=== PATIENT | female | born 1940 | race Caucasian/White ===

== ENCOUNTER 2022-03-21 15:00 | Observation (INO) ==
--- NOTE | 2022-03-21 15:53 | XRay Report ---
INDICATION: fall weakness TECHNIQUE: AP portable semiupright chest x-ray COMPARISON: Previous chest x-ray dated 06/15/2020 FINDINGS: Lungs:Lungs are negative. No focal pulmonary parenchymal infiltrate or mass Heart, vascular: Heart size is within normal limits considering AP positioning. Pulmonary vascularity is normal. No pulmonary edema or pulmonary congestion Mediastinum, jackie:No mediastinal widening. No hilar mass Pleura:No pleural fluid. No pleural-based mass or calcification. No pneumothorax Skeletal:Negative. Previous left reverse shoulder arthroplasty. No acute rib fractures. IMPRESSION: 1. No acute abnormality 2. No significant interval change Interpreted and Authenticated by: Gurdeep Rodriguez 03/21/22
--- NOTE | 2022-03-21 15:56 | Cat Scan Report ---
INDICATION: ams COMPARISON: Previous examination dated 06/15/2020 TECHNIQUE: Axial noncontrast-enhanced images through the brain. Sagittally and coronally reformatted images. FINDINGS: Cerebral hemispheres:There is cerebral atrophy. There is prominent white matter abnormality consistent with small vessel ischemic change in this 82-year-old patient. No intra-axial hemorrhage. No focal intra-axial attenuation of the nodule localized mass effect. No acute abnormality. Brainstem and cerebellum:Focal substance loss in the superior left cerebellar hemisphere consistent with old infarction. This is unchanged. No acute abnormality. No intra-axial hemorrhage Extra-axial:No acute hemorrhage. No subdural or epidural hematoma. No subarachnoid hemorrhage. Basilar cisterns are normal Calvarial:No calvarial fracture. No lytic lesion Temporal bones are negative. No destructive lesions Soft tissue, orbits, sinuses:Orbits and visualized facial soft tissues and paranasal sinuses are negative IMPRESSION: 1. Cerebral atrophy and white matter abnormality consistent with small vessel ischemic change 2. Chronic left cerebellar infarction, unchanged 3. No acute abnormality. No intracranial hemorrhage The exam was performed using radiation dose optimization techniques including, but not limited to, automated exposure control, adjustment of the mA and/or kV according to patient size and use of iterative reconstruction technique. Interpreted and Authenticated by: Gurdeep Rodriguez 03/21/22
[2022-03-21 16:10] LABS: POC Calcium, Ionized 1.13 (1.16-1.32); POC Creatinine 0.8 (0.6-1.2); POC Potassium 3.5 (3.3-5.1)
--- NOTE | 2022-03-21 16:38 | Emergency Department Note ---
HPI General Chief complaint: Weakness Stated complaint: weakness Time Seen by Provider: 03/21/22 15:06 Source: patient and EMS Mode of arrival: EMS History of Present Illness HPI Narrative: Narrative: Patient presents to the emergency department with diffuse weakness, inability to care for self. Patient had a fall a few days ago she had a nondisplaced T8 vertebral body fracture. Orthopedics was consulted the patient was offered admission and she declined at that time. The patient went home and has failed to get up for around. She tried going to the commode and was unable to get off today. She tried to have her son help her off and he was unable. She lives with her son who does work during the day. The patient denies any fev ers or chills she does have some back pain. She reports that she has had poor oral intake for the last several days. No cough or congestion, no chest pain. Related Data Home Medications Medication Instructions Recorded Confirmed lisinopril 10 mg tablet 10 mg PO BID 03/21/22 03/22/22 simvastatin 40 mg tablet 40 mg PO QHS 03/22/22 03/22/22 Previous Rx's Medication Instructions Recorded methocarbamol 750 mg tablet 750 mg PO Q8H PRN spasms #60 tabs 11/09/21 polyethylene glycol 3350 17 17 g PO QDAY #510 grams 12/04/21 gram/dose oral powder (Miralax) zolpidem 6.25 mg tablet,extended 6.25 mg PO QHS PRN insomnia #30 03/02/22 release,multiphase tabs alprazolam 1 mg tablet 1 mg PO QID PRN anxiety #60 tabs 03/17/22 hydrocodone 10 mg-acetaminophen 0.5 tab PO BID PRN pain #1 tab 03/22/22 325 mg tablet nitrofurantoin 100 mg PO BID #9 caps 03/22/22 monohydrate/macrocrystals 100 mg capsule (Macrobid) Allergies Allergy/AdvReac Type Severity Reaction Status Date / Time ciprofloxacin AdvReac Severe spasms, Verified 03/19/22 19:42 pain dipyridamole [From Aggrenox] AdvReac Mild Other Verified 03/19/22 19:42 Sulfa (Sulfonamide AdvReac Mild Rash Verified 03/19/22 19:42 Antibiotics) Review of Systems ROS ROS Narrative: Narrative: All systems ED: reviewed and negative except as stated. 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) Diabetes (Chronic) Hypertension (Chronic) Breast cancer (Chronic) DCIS (ductal carcinoma in situ) (Chronic) Hyperlipidemia (Chronic) Chronic pain (Chronic) Frequent UTI (Chronic) Osteoporosis (Chronic) Paresthesia (Chronic) 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) Constipation (Chronic) Long-term use of high-risk medication (Chronic) Loss of appetite (Chronic) Frequent falls (Chronic) Grief reaction (Chronic) Diabetic autonomic neuropathy (Chronic) Proteinuria (Chronic) 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) Degenerative disc disease, lumbar (Chronic) Depression (Chronic) Joint pain (Chronic) Gout (Chronic) Arthritis (Chronic) Fatigue (Chronic) Poor sleep (Chronic) Anxiety (Chronic) Headache (Chronic) Urinary incontinence (Chronic) Spinal stenosis (Chronic) Degenerative joint disease of ankle (Chronic) Medical History Adjustment disorder with mixed anxiety and depressed mood Anxiety Arthritis Breast cancer S/P left breast Mastectomy Candidal vaginitis Cerebral vascular accident Chronic pain Constipation DCIS (ductal carcinoma in situ) Degenerative disc disease, lumbar Degenerative joint disease of ankle Depression Diabetes Diabetic autonomic neuropathy Dysuria Fatigue Foot callus Frequent falls Frequent UTI Gout Grief reaction Headache Hyperlipidemia Hypertension Joint pain extermination supervisor (current) use of opiate analgesic fentanyl patch; for back and neck pain, etc. Long-term use of high-risk medication Loss of appetite Lumbosacral disc herniation Neck pain Non-pressure chronic ulcer of other part of left foot limited to breakdown of skin Osteoporosis Poor sleep Proteinuria Shoulder impingement syndrome Spinal stenosis Stress Urinary frequency Urinary incontinence Urinary tract infection Weakness Surgical History History of appendectomy (~1965) History of back surgery (~2004) Decompression/Fusion History of cervical discectomy (~2010) History of cholecystectomy History of colonoscopy (~04/25/12) History of dental surgery (~2016) History of eye surgery Left cataract repair-2006, Right cataract repair-2011 History of foot surgery (~2001) Heel surgery History of hemorrhoidectomy History of hysterectomy (~1970) History of left hip replacement (~2007) History of mastectomy Triple negative Grade III History of right hip replacement (~2008) History of tonsillectomy S/P left mastectomy S/P lumpectomy, left breast (~2002) Family History Father Hypertension Prostate cancer Social History Smoking Status: Former smoker Alcohol Intake Frequency: does not drink Substance Use: does not use Exam Narrative Narrative: Narrative: Vital signs noted General: Awake. Alert. No distress. HEENT: NCAT PERRL EOMI. No conjunctivitis. Membranes moist. Neck: Supple, trachea midline Cardiovascular: RRR. No murmur. No rubs. No gallops. Respiratory: No respiratory distress. Breath sounds equal. Lungs clear. Gastrointestinal: Soft. No tenderness Musculoskeletal: No pain. No soft tissue swelling. Patient's upper extremity and lower extremity strength are diffusely weak without asymmetry she has good passive range of motion around the hips shoulders knees elbows, ankles wrists Back: Patient does have tenderness in the mid thoracic spine to palpation she has no cervical spinal tenderness to palpation in the midline Skin: Warm. Dry. No rash Neurologic: Alert and oriented x3 moves all extremities equally and fully, speech is fluent face is symmetric Course Vital Signs Vital signs: Vital Signs Temperature 98.3 F 03/21/22 15:02 Pulse Rate 83 03/21/22 15:02 Respiratory Rate 18 03/21/22 15:02 Blood Pressure 143/84 03/21/22 15:02 Pulse Oximetry (%) 96 03/21/22 15:02 Oxygen Delivery Method 03/21/22 15:02 Temperature 97.3 F 03/22/22 16:00 Pulse Rate 66 03/22/22 16:00 Respiratory Rate 20 03/22/22 16:00 Blood Pressure 139/87 03/22/22 16:00 Pulse Oximetry (%) 96 03/22/22 16:00 Oxygen Delivery Method 03/22/22 16:00 [facility] MDM Narrative Medical decision making narrative: Narrative: Patient presents to the emergency department with weakness, back pain. She lives with her son and he is having a difficult time taking care of her. Patient was recently seen in the emergency department and had a T8 vertebral body dissolution which appeared to be acute compared to prior this is clinically where the patient's pain is at. Patient's urine analysis does have trace leukocyte esterase, 98 white blood cells and a few bacteria. Given the patient's overall weakness and mild leukocytosis I will give her ceftriaxone. I also give the patient IV fluids her CK has climbed to 600 likely from dehydration patient's EKG shows a normal sinus rhythm of 76, normal axis, normal R wave progression without evidence of acute ischemia. I have spoke with the hospitalist who is agreeable to admit the patient. Lab Data Result diagrams: 03/22/22 05:37 03/22/22 05:37 Labs: Lab Results 03/21/22 03/21/22 03/21/22 Range/Units 16:02 16:03 16:03 WBC (4.5-11.0) K/mcL RBC (3.59-5.38) M/mcL Hgb (11.2-15.7) g/dL Hct (34.1-44.9) % POC Hct 44.0 (36-48) MCV (80.0-100.0) fL MCH (26.0-34.0) pg MCHC (31.0-36.0) g/dL RDW (11.5-14.5) % Plt Count (140-440) K/mcL MPV (7.4-10.4) fL Immature Gran % (Auto) (0.0-0.5) % Neut % (Auto) (38.0-78.0) % Lymph % (Auto) (15.5-49.0) % [place] % (Auto) (1.0-12.0) % Eos % (Auto) (0.0-7.0) % Baso % (Auto) (0.0-2.0) % Lymph # (Auto) (1.50-4.80) K/mcL [place] # (Auto) (0.10-0.90) K/mcL Eos # (Auto) (0.00-0.70) K/mcL Baso # (Auto) (0.00-0.30) K/mcL Immature Gran # (0.00-0.05) K/mcl Absolute Neutrophils (1.80-8.00) K/mcL POC Sodium 141 (133-145) POC Potassium 3.5 (3.3-5.1) POC Chloride 102 (96-108) POC Total CO2 29.0 (22-30) POC BUN 13 (6-20) POC Creatinine 0.8 (0.6-1.2) POC Glucose 130 H (70-105) POC WB Ioniz Calcium 1.13 L (1.16-1.32) Magnesium (1.6-2.5) mg/dL Total Bilirubin (0.1-1.0) mg/dL Direct Bilirubin (0-0.3) mg/dL AST (<32) U/L ALT (<40) U/L Alkaline Phosphatase (39-117) U/L Total Creatine Kinase (24-170) U/L Total Protein (5.9-8.4) gm/dL Albumin (3.2-5.2) gm/dL Globulin (2.2-3.7) gm/dL Procalcitonin 0.07 (<0.10) ng/mL TSH (0.27-5.01) uIU/mL Urine Color Urine Appearance (Clear) Urine pH (5.0-9.0) Ur Specific [place] (1.000-1.035) Urine Protein (Negative) mg/dL Urine Glucose (UA) (Negative) mg/dL Urine Ketones (Negative) mg/dL Urine Occult Blood (Negative) ange/mcL Urine Nitrate (Negative) Urine Bilirubin (Negative) mg/dL Urine Urobilinogen mg/dL Ur Leukocyte Esterase (Negative) /uL Urine RBC (0-3) /hpf Urine WBC (0-4) /hpf Ur Squamous Epith Cells (0-4) /hpf Urine Bacteria (0) /hpf Urine Mucus (None) /hpf Ur Culture Indicated? POC Troponin I 0 L (0.02-0.08) 03/21/22 03/21/22 03/21/22 Range/Units 16:05 16:06 16:38 WBC 11.1 H (4.5-11.0) K/mcL RBC 4.82 (3.59-5.38) M/mcL Hgb 14.7 (11.2-15.7) g/dL Hct 44.2 (34.1-44.9) % POC Hct (36-48) MCV 91.7 (80.0-100.0) fL MCH 30.5 (26.0-34.0) pg MCHC 33.3 (31.0-36.0) g/dL RDW 12.7 (11.5-14.5) % Plt Count 211 (140-440) K/mcL MPV 9.2 (7.4-10.4) fL Immature Gran % (Auto) 0.5 (0.0-0.5) % Neut % (Auto) 83.4 H (38.0-78.0) % Lymph % (Auto) 9.0 L (15.5-49.0) % [place] % (Auto) 5.2 (1.0-12.0) % Eos % (Auto) 1.6 (0.0-7.0) % Baso % (Auto) 0.3 (0.0-2.0) % Lymph # (Auto) 1.00 L (1.50-4.80) K/mcL [place] # (Auto) 0.58 (0.10-0.90) K/mcL Eos # (Auto) 0.18 (0.00-0.70) K/mcL Baso # (Auto) 0.03 (0.00-0.30) K/mcL Immature Gran # 0.06 H (0.00-0.05) K/mcl Absolute Neutrophils 9.22 H (1.80-8.00) K/mcL POC Sodium (133-145) POC Potassium (3.3-5.1) POC Chloride (96-108) POC Total CO2 (22-30) POC BUN (6-20) POC Creatinine (0.6-1.2) POC Glucose (70-105) POC WB Ioniz Calcium (1.16-1.32) Magnesium 1.8 (1.6-2.5) mg/dL Total Bilirubin 0.7 (0.1-1.0) mg/dL Direct Bilirubin < 0.2 (0-0.3) mg/dL AST 30 (<32) U/L ALT 11 (<40) U/L Alkaline Phosphatase 81 (39-117) U/L Total Creatine Kinase 600 H (24-170) U/L Total Protein 7.0 (5.9-8.4) gm/dL Albumin 3.7 (3.2-5.2) gm/dL Globulin 3.3 (2.2-3.7) gm/dL Procalcitonin (<0.10) ng/mL TSH 1.64 (0.27-5.01) uIU/mL Urine Color Dark yellow Urine Appearance Clear (Clear) Urine pH 5.5 (5.0-9.0) Ur Specific [place] >= 1.030 (1.000-1.035) Urine Protein >=300 mg/dl A (Negative) mg/dL Urine Glucose (UA) Negative (Negative) mg/dL Urine Ketones 40 mg/dl A (Negative) mg/dL Urine Occult Blood Small A (Negative) ange/mcL Urine Nitrate Negative (Negative) Urine Bilirubin Negative (Negative) mg/dL Urine Urobilinogen Normal mg/dL Ur Leukocyte Esterase Trace A (Negative) /uL Urine RBC 61 H (0-3) /hpf Urine WBC 98 H (0-4) /hpf Ur Squamous Epith Cells 3 (0-4) /hpf Urine Bacteria Few A (0) /hpf Urine Mucus Mod A (None) /hpf Ur Culture Indicated? yes POC Troponin I (0.02-0.08) Discharge Plan Patient/Caregiver Discharge Instructions Pt seen by [facility]/PA only: No Clinical Impression: Closed fracture of T8 vertebra, Acute dehydration Activity: ambulate only with your walker Patient Disposition: Xfer As Inpt ([facility]) Condition: Fair Discharge Date/Time: 03/21/22 20:14
[2022-03-21 16:48] LABS: Basophils # (Auto) 0.03 K/mcL (0.00-0.30); Basophils % (Auto) 0.3 % (0.0-2.0); Eosinophils # (Auto) 0.18 K/mcL (0.00-0.70); Eosinophils % (Auto) 1.6 % (0.0-7.0); Hematocrit 44.2 % (34.1-44.9); Hemoglobin 14.7 g/dL (11.2-15.7); Mean Cell Volume 91.7 fL (80.0-100.0); Mean Corpuscular HGB Conc 33.3 g/dL (31.0-36.0); Mean Platelet Volume 9.2 fL (7.4-10.4); Monocytes # (Auto) 0.58 K/mcL (0.10-0.90); Monocytes % (Auto) 5.2 % (1.0-12.0); Neutrophils % (Auto) 83.4 % (38.0-78.0); Platelet Count 211 K/mcL (140-440); RBC 4.82 M/mcL (3.59-5.38); Red Cell Distribution Width 12.7 % (11.5-14.5); WBC 11.1 K/mcL (4.5-11.0)
[2022-03-21 17:17] LABS: Creatine Kinase 600 U/L (24-170)
[2022-03-21 17:18] LABS: ALT/SGPT 11 U/L (<40); AST/SGOT 30 U/L (<32); Albumin 3.7 gm/dL (3.2-5.2); Alkaline Phosphatase 81 U/L (39-117); Bilirubin,Direct < 0.2 mg/dL (0-0.3); Bilirubin,Total 0.7 mg/dL (0.1-1.0); Globulin 3.3 gm/dL (2.2-3.7); Thyroid Stimulating Hormone 1.64 uIU/mL (0.27-5.01)
[2022-03-21] MEDS ORDERED: LACTATED RINGERS 1,000 ML IV ONE (17:19)
[2022-03-21 17:22] LABS: Appearance,Urine Clear (Clear); Bacteria,Urine FEW /hpf (0); Bilirubin,Urine Negative (Negative); Color,Urine Dark yellow; Culture Indicated,Urine yes; Glucose,Urine (UA) Negative (Negative); Ketones,Urine 40 mg/dL mg/dL (Negative); Leukocyte Esterase,Urine Trace /uL (Negative); Mucus,Urine MOD /hpf; Nitrate,Urine Negative (Negative); PH,Urine 5.5 (5.0-9.0); Protein,Urine >=300 mg/dL mg/dL (Negative); Specific Gravity,Urine >= 1.030 (1.000-1.035); Urine Blood Small ery/mcL (Negative); Urine RBC 61 /hpf (0-3); Urine Squamous Epithelial Cell 3 /hpf (0-4); Urine WBC 98 /hpf (0-4); Urobilinogen,Urine Normal
[2022-03-21] MEDS ORDERED: cefTRIAXone 1 GM VIAL IV ONE (17:25)
--- NOTE | 2022-03-21 17:59 | Internal Med History&Physical ---
HPI History of Present Illness Patient information: Note initiated : 03/21/22 at 5:52 pm Service Date, if different from initiated Date: [] Patient: Laura Noriega a 82 y/o F admitted on for weakness. Chief Complaint: [] History of present illness: Ms. Noriega is a 82 year old F Patient brought into the ED today for increased weakness and falling. Patient fell several days ago and sustained a T8 vertebral fracture. Patient has been unable to care for herself at home. She does live with her son. Given the increased weakness of falling her son total unable to care for her as well. She does complain a little bit of dysuria when asked specifically. UA with ketones and trace leukocyte esterase with increased WBCs. Head CT no acute but does show cerebral atrophy and chronic ischemic changes. Chronic cerebellar infarction noted unchanged. Chest x-ray unremarkable. Patient denies fever chills. Does admit to mid back pain. CPK mildly elevated 600. Renal function within normal limits. Review of Systems: Pertinent positives as above. Denies headache/fever/chills/nausea/vomiting/chest or abdominal pain/cough/dyspnea/diarrhea. 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) Diabetes (Chronic) Hypertension (Chronic) Breast cancer (Chronic) DCIS (ductal carcinoma in situ) (Chronic) Hyperlipidemia (Chronic) Chronic pain (Chronic) Frequent UTI (Chronic) Osteoporosis (Chronic) Paresthesia (Chronic) 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) Constipation (Chronic) Long-term use of high-risk medication (Chronic) Loss of appetite (Chronic) Frequent falls (Chronic) Grief reaction (Chronic) Diabetic autonomic neuropathy (Chronic) Proteinuria (Chronic) 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) Degenerative disc disease, lumbar (Chronic) Depression (Chronic) Joint pain (Chronic) Gout (Chronic) Arthritis (Chronic) Fatigue (Chronic) Poor sleep (Chronic) Anxiety (Chronic) Headache (Chronic) Urinary incontinence (Chronic) Spinal stenosis (Chronic) Degenerative joint disease of ankle (Chronic) Medical History Adjustment disorder with mixed anxiety and depressed mood Anxiety Arthritis Breast cancer S/P left breast Mastectomy Candidal vaginitis Cerebral vascular accident Chronic pain Constipation DCIS (ductal carcinoma in situ) Degenerative disc disease, lumbar Degenerative joint disease of ankle Depression Diabetes Diabetic autonomic neuropathy Dysuria Fatigue Foot callus Frequent falls Frequent UTI Gout Grief reaction Headache Hyperlipidemia Hypertension 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 Long-term use of high-risk medication Loss of appetite Lumbosacral disc herniation Neck pain Non-pressure chronic ulcer of other part of left foot limited to breakdown of skin Osteoporosis Poor sleep Proteinuria Shoulder impingement syndrome Spinal stenosis Stress Urinary frequency Urinary incontinence Urinary tract infection Weakness Surgical History History of appendectomy (~1965) History of back surgery (~2004) Decompression/Fusion History of cervical discectomy (~2010) History of cholecystectomy History of colonoscopy (~04/25/12) History of dental surgery (~2016) History of eye surgery Left cataract repair-2006, Right cataract repair-2011 History of foot surgery (~2001) Heel surgery History of hemorrhoidectomy History of hysterectomy (~1970) History of left hip replacement (~2007) History of mastectomy Triple negative Grade III History of right hip replacement (~2008) History of tonsillectomy S/P left mastectomy S/P lumpectomy, left breast (~2002) Family History Father Hypertension Prostate cancer Social History marital status: occupational status: 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 leisure activities: sports, fishing and other other: Children-3, Grandchildren-2, Great Grandchildren-2 physical activity: other frequency: 3-4 times per week smoking status: Former smoker alcohol intake frequency: does not drink substance use type: does not use MEDS/ALLERGIES Home Medications and Allergies Home Medications Medication Instructions Recorded Confirmed Type cholecalciferol (vitamin D3) 1,250 1,250 mcg PO QWEEK #12 caps 05/24/21 02/08/22 Rx mcg (50,000 unit) capsule lisinopril 10 mg tablet See Rx Instructions .Route 11/09/21 02/08/22 Rx .COMPLEX #180 tabs methocarbamol 750 mg tablet 750 mg PO Q8H PRN spasms #60 tabs 11/09/21 02/08/22 Rx simvastatin 40 mg tablet See Rx Instructions .Route 11/09/21 02/08/22 Rx .COMPLEX #90 tabs polyethylene glycol 3350 17 17 g PO QDAY #510 grams 12/04/21 02/08/22 Rx gram/dose oral powder (Miralax) hydrocodone 10 mg-acetaminophen 1 tab PO BID PRN pain #60 tabs 03/02/22 Rx 325 mg tablet zolpidem 6.25 mg tablet,extended 6.25 mg PO QHS PRN insomnia #30 03/02/22 Rx release,multiphase tabs alprazolam 1 mg tablet 1 mg PO QID PRN anxiety #60 tabs 03/17/22 Rx Allergies Allergy/AdvReac Type Severity Reaction Status Date / Time doxycycline Allergy Intermediate Unknown Verified 03/19/22 19:42 meloxicam Allergy Unknown Unknown Verified 03/19/22 19:42 naproxen [From Naprosyn] Allergy Unknown Unknown Verified 03/19/22 19:42 oxycodone Allergy Unknown Unknown Verified 03/19/22 19:42 Tamoxifen Allergy Unknown Unknown Verified 03/19/22 19:42 Tizanidine Allergy Unknown Unknown Verified 03/19/22 19:42 ciprofloxacin AdvReac Severe spasms, Verified 03/19/22 19:42 pain aspirin AdvReac Mild Numbness Verified 03/19/22 19:42 Corticosteroids AdvReac Mild sleeplessne Verified 03/19/22 19:42 (Glucocorticoids) ss Cortisone AdvReac Mild sleeplessne Verified 03/19/22 19:42 ss dexamethasone AdvReac Mild sleeplessne Verified 03/19/22 19:42 ss dipyridamole [From Aggrenox] AdvReac Mild Other Verified 03/19/22 19:42 ibuprofen AdvReac Mild Other Verified 03/19/22 19:42 morphine AdvReac Mild Headache Verified 03/19/22 19:42 pseudoephedrine AdvReac Mild sleeplessne Verified 03/19/22 19:42 [From [facility]] ss Sulfa (Sulfonamide AdvReac Mild Rash Verified 03/19/22 19:42 Antibiotics) EXAM Constitutional Vitals: Temp Pulse Resp BP Pulse Ox O2 Del Method 98.3 F 81 18 174/77 97 03/21/22 15:02 03/21/22 16:42 03/21/22 15:02 03/21/22 16:45 03/21/22 16:42 03/21/22 15:02 Exam: General: Alert, Awake, No acute Distress, obese Eyes/N/T: EOMI, PERRL, dry MM Head/Neck: neck supple, normocephalic atraumatic CV: RRR, No murmurs, normal s1/s2 Pulm: Clear b/l, no wheezing/rhonchi/rales Abd: soft, nontender, +BS x4 Ext: no clubbing/cyanosis/edema Neuro: Alert, no focal deficits, moves all extremities, CN 2-12 grossly intact, symmetrical strength b/l upper/lower, sensations intact b/l upper/lower Skin: warm/dry DATA Data Completed and Pending Labs: Labs from last 24 hours 03/21/22 03/21/22 03/21/22 16:38 16:06 16:05 WBC 11.1 H RBC 4.82 Hgb 14.7 Hct 44.2 POC Hct MCV 91.7 MCH 30.5 MCHC 33.3 RDW 12.7 Plt Count 211 MPV 9.2 Immature Gran % (Auto) 0.5 Neut % (Auto) 83.4 H Lymph % (Auto) 9.0 L [place] % (Auto) 5.2 Eos % (Auto) 1.6 Baso % (Auto) 0.3 Lymph # (Auto) 1.00 L [place] # (Auto) 0.58 Eos # (Auto) 0.18 Baso # (Auto) 0.03 Immature Gran # 0.06 H Absolute Neutrophils 9.22 H POC Sodium POC Potassium POC Chloride POC Total CO2 POC BUN POC Creatinine POC Glucose POC WB Ioniz Calcium Magnesium 1.8 Total Bilirubin 0.7 Direct Bilirubin < 0.2 AST 30 ALT 11 Alkaline Phosphatase 81 Total Creatine Kinase 600 H Total Protein 7.0 Albumin 3.7 Globulin 3.3 Procalcitonin TSH 1.64 Urine Color Dark yellow Urine Appearance Clear Urine pH 5.5 Ur Specific [place] >= 1.030 Urine Protein >=300 mg/dl A Urine Glucose (UA) Negative Urine Ketones 40 mg/dl A Urine Occult Blood Small A Urine Nitrate Negative Urine Bilirubin Negative Urine Urobilinogen Normal Ur Leukocyte Esterase Trace A Urine RBC 61 H Urine WBC 98 H Ur Squamous Epith Cells 3 Urine Bacteria Few A Urine Mucus Mod A Ur Culture Indicated? yes POC Troponin I Pending 03/21/22 03/21/22 03/21/22 16:03 16:03 16:02 WBC RBC Hgb Hct POC Hct 44.0 MCV MCH MCHC RDW Plt Count MPV Immature Gran % (Auto) Neut % (Auto) Lymph % (Auto) [place] % (Auto) Eos % (Auto) Baso % (Auto) Lymph # (Auto) [place] # (Auto) Eos # (Auto) Baso # (Auto) Immature Gran # Absolute Neutrophils POC Sodium 141 POC Potassium 3.5 POC Chloride 102 POC Total CO2 29.0 POC BUN 13 POC Creatinine 0.8 POC Glucose 130 H POC WB Ioniz Calcium 1.13 L Magnesium Total Bilirubin Direct Bilirubin AST ALT Alkaline Phosphatase Total Creatine Kinase Total Protein Albumin Globulin Procalcitonin 0.07 TSH Urine Color Urine Appearance Urine pH Ur Specific [place] Urine Protein Urine Glucose (UA) Urine Ketones Urine Occult Blood Urine Nitrate Urine Bilirubin Urine Urobilinogen Ur Leukocyte Esterase Urine RBC Urine WBC Ur Squamous Epith Cells Urine Bacteria Urine Mucus Ur Culture Indicated? POC Troponin I 0 L A/P Narrative A/P Narrative: A: *Generalized weakness/deconditioning/falling: *Dehydration: *?UTI: *HTN/HLD: *Anxiety: * P: -IVF -Rocephin, pending UC -cont ACEI - -PT/OT -Home medication reconciliation -ppx: Lovenox DNR Time Spent With Patient Time: Total time spent is greater than 50% in coordination of care (as documented) at patient's floor/unit and/or counseling patient:
[2022-03-21] MEDS ORDERED: ACETAMINOPHEN 325 MG TABLET PO PRN (20:33)
[2022-03-21] MEDS ORDERED: SENNOSIDES 1 TABLET PO PRN (20:33)
[2022-03-21] MEDS ORDERED: MAGNESIUM SULFATE 2 GM/50 ML BAG IV PRN (20:33)
[2022-03-21] MEDS ORDERED: POTASSIUM CHLORIDE 20 MEQ TABLET PO PRN ×2 (20:33)
[2022-03-21] MEDS ORDERED: 0.9 % SODIUM CHLORIDE 1,500 ML IV ONE (20:33)
[2022-03-21] MEDS ORDERED: IPRATROPIUM/ALBUTEROL 3 ML AMPUL.NEB NEB PRN (20:33)
[2022-03-21] MEDS ORDERED: POLYETHYLENE GLYCOL 3350 17 GM PACKET PO PRN (20:33)
[2022-03-21] MEDS ORDERED: hydrOXYzine 25 MG TABLET PO PRN (20:33)
[2022-03-21] MEDS ORDERED: ONDANSETRON 4 MG/2 ML VIAL IV PRN (20:33)
[2022-03-21] MEDS ORDERED: POTASSIUM CHLORIDE 40 MEQ in DEXTROSE 5% IN WATER 500 ML IV PRN (20:33)
[2022-03-21] MEDS ORDERED: LABETALOL 5 MG/ML ML IV PRN (20:33)
[2022-03-21] MEDS ORDERED: MELATONIN 3 MG TABLET PO SCH (21:00)
[2022-03-21] MEDS: 0.9 % SODIUM CHLORIDE 10 ML SYRINGE IV SCH (21:12)
[2022-03-21] MEDS: HYDROcodone/APAP 5/325MG TABLET PO PRN (21:19)
[2022-03-21] MEDS: DOCUSATE SODIUM 100 MG CAPSULE PO SCH (21:19)
[2022-03-21] MEDS: METHOCARBAMOL 500 MG TABLET PO PRN (21:19)
[2022-03-22] MEDS: METHOCARBAMOL 500 MG TABLET PO PRN ×2 (03:05→11:40)
[2022-03-22] MEDS: HYDROcodone/APAP 5/325MG TABLET PO PRN ×2 (03:05→11:40)
[2022-03-22] MEDS: 0.9 % SODIUM CHLORIDE 10 ML SYRINGE IV SCH (05:48)
[2022-03-22 06:31] LABS: Basophils # (Auto) 0.04 K/mcL (0.00-0.30); Basophils % (Auto) 0.4 % (0.0-2.0); Eosinophils # (Auto) 0.27 K/mcL (0.00-0.70); Eosinophils % (Auto) 2.8 % (0.0-7.0); Hematocrit 39.6 % (34.1-44.9); Hemoglobin 12.9 g/dL (11.2-15.7); Lymphocytes # (Auto) 1.87 K/mcL (1.50-4.80); Lymphocytes % (Auto) 19.6 % (15.5-49.0); Mean Cell Volume 92.5 fL (80.0-100.0); Mean Corpuscular HGB Conc 32.6 g/dL (31.0-36.0); Mean Platelet Volume 9.1 fL (7.4-10.4); Monocytes # (Auto) 0.71 K/mcL (0.10-0.90); Monocytes % (Auto) 7.5 % (1.0-12.0); Neutrophils % (Auto) 69.4 % (38.0-78.0); Platelet Count 212 K/mcL (140-440); RBC 4.28 M/mcL (3.59-5.38); Red Cell Distribution Width 12.6 % (11.5-14.5); WBC 9.5 K/mcL (4.5-11.0)
[2022-03-22 06:53] LABS: ALT/SGPT 13 U/L (<40); AST/SGOT 33 U/L (<32); Alkaline Phosphatase 70 U/L (39-117); Bilirubin,Direct < 0.2 mg/dL (0-0.3); Bilirubin,Total 0.4 mg/dL (0.1-1.0); Blood Urea Nitrogen 12 mg/dL (8-23); Calcium 8.5 mg/dL (8.6-10.4); Carbon Dioxide 25 mmol/L (22-30); Chloride 102 mmol/L (96-108); Glomerular Filtration Rate 85; Glucose 118 mg/dL (70-105); Lactate Dehydrogenase 305 U/L (135-225); Phosphorous 2.5 mg/dL (2.5-4.5); Triglycerides 99 mg/dL (<150); Uric Acid 3.8 mg/dL (2.5-8.0)
--- NOTE | 2022-03-22 07:58 | Internal Med Progress Note ---
SUBJECTIVE Subjective Patient information: Note initiated : 03/22/22 at 7:55 am Service Date, if different from initiated Date: [] Patient: Laura Noriega a 82 y/o F admitted on 03/21/22 for weakness. Chief Complaint: [] Interval history: History of present illness: Ms. Noriega is a 82 year old F Patient brought into the ED today for increased weakness and falling. 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 Patient has been unable to care for herself at home. She does live with her son. Given the increased weakness of falling her son total unable to care for her as well. She does complain a little bit of dysuria when asked specifically. UA with ketones and trace leukocyte esterase with increased WBCs. Head CT no acute but does show cerebral atrophy and chronic ischemic changes. Chronic cerebellar infarction noted unchanged. Chest x-ray unremarkable. Patient denies fever chills. Does admit to mid back pain. CPK mildly elevated 600. Renal function within normal limits. 03/22 No overnight event or new complaints. Mildly low potassium today. Replete. Need physical therapy to evaluate today. Review of Systems: denies headache/fever/chills/nausea/vomiting/chest or abdominal pain/coug h/dyspnea/diarrhea. Otherwise see above. Constitutional Vitals: Vital Signs Temp Pulse Resp BP Pulse Ox O2 Del Method 98.9 F 64 16 155/84 91 03/22/22 02:48 03/22/22 02:48 03/22/22 02:48 03/22/22 02:48 03/22/22 02:48 03/22/22 02:48 Period Temp Pulse Resp BP Sys/[place] Pulse Ox O2 Del Method O2 Flow Rate Last 24 Hr 98.3 F-99.1 F 64-85 16-18 133-175/76-99 91-97 Room Air-Room Air Intake and Output 03/21/22 03/22/22 03/22/22 21:59 05:59 13:59 Intake Total 200 1170 Output Total 100 250 Balance 100 920 Weight 95.209 kg Intake & Output: Intake & Output 03/21/22 03/22/22 03/22/22 21:59 05:59 13:59 Intake Total 200 1170 Output Total 100 250 Balance 100 920 Weight 95.209 kg Intake: IV 200 800 Lactated Ringers 1,000 ml @ 200 800 Wide Open IV BOLUS ONE Rx#: [id number] Oral 370 Output: Void Amount 100 250 Other: Meal [place], yogurt Percent of Meal Consumed 75% Feeding Ability Independent Urine Appearance Clear Clear Fem Cath Cloudy Urine Color Dark Yellow Light Kerri Fem Cath Dark Yellow Urine Odor Strong Exam: General: Alert, Awake, No acute Distress, obese Eyes/N/T: EOMI, Head/Neck: neck supple, CV: RRR, No murmurs, Pulm: Clear b/l, no wheezing/rhonchi/rales Abd: soft, nontender, +BS x4 Ext: no clubbing/cyanosis/edema Neuro: Alert, no focal deficits, moves all extremities, Skin: warm/dry OBJ DATA Labs CBC & Chem 7: 03/22/22 05:37 03/22/22 05:37 Labs: Abnormal Lab Results 03/22/22 03/21/22 03/21/22 05:37 16:38 16:06 WBC 11.1 H Neut % (Auto) 83.4 H Lymph % (Auto) 9.0 L Lymph # (Auto) 1.00 L Immature Gran # 0.06 H Absolute Neutrophils 9.22 H Potassium 3.2 L Glucose 118 H POC Glucose Calcium 8.5 L POC WB Ioniz Calcium AST 33 H Lactate Dehydrogenase 305 H Total Creatine Kinase Albumin 3.0 L Urine Protein >=300 mg/dl A Urine Ketones 40 mg/dl A Urine Occult Blood Small A Ur Leukocyte Esterase Trace A Urine RBC 61 H Urine WBC 98 H Urine Bacteria Few A Urine Mucus Mod A POC Troponin I 03/21/22 03/21/22 03/21/22 16:05 16:03 16:02 WBC Neut % (Auto) Lymph % (Auto) Lymph # (Auto) Immature Gran # Absolute Neutrophils Potassium Glucose POC Glucose 130 H Calcium POC WB Ioniz Calcium 1.13 L AST Lactate Dehydrogenase Total Creatine Kinase 600 H Albumin Urine Protein Urine Ketones Urine Occult Blood Ur Leukocyte Esterase Urine RBC Urine WBC Urine Bacteria Urine Mucus POC Troponin I 0 L Meds: Medications Acetaminophen (Acetaminophen 325 Mg Tablet) 650 mg PO Q6HP PRN; Protocol PRN Reason: Per Pain Protocol/Fever > 101 Hydrocodone Bitart/Acetaminophen (Hydrocodone/Apap 5/325mg Tablet) 1 tab PO Q4HP PRN PRN Reason: PAIN LEVEL 3-6 Last Admin: 03/22/22 03:05 Dose: 1 tab Albuterol/Ipratropium (Ipratropium/Albuterol 3 Ml Ampul.Neb) 3 ml NEB Q4HP PRN PRN Reason: Shortness Of Breath Docusate Sodium (Docusate Sodium 100 Mg Capsule) 100 mg PO BID [facility] Last Admin: 03/21/22 21:19 Dose: 100 mg Enoxaparin Sodium (Enoxaparin 40 Mg/0.4 Ml Syringe) 40 mg SQ DAILY [facility] Hydroxyzine HCl (Hydroxyzine 25 Mg Tablet) 50 mg PO TIDP PRN PRN Reason: Anxiety Potassium Chloride 40 meq/ (Dextrose) 520 mls @ 130 mls/hr IV UD PRN PRN Reason: Potassium < 3 Magnesium Sulfate (Magnesium Sulfate) 2 gm in 50 mls @ 50 mls/hr IV UD PRN PRN Reason: Magnesium </= 1.6 Sodium Chloride (Sodium Chloride 0.9%) 1,500 mls @ 125 mls/hr IV .Q12H ONE Stop: 03/22/22 08:32 Last Admin: 03/21/22 21:10 Dose: 125 mls/hr Labetalol HCl (Labetalol 5 Mg/Ml Ml) 0 mg IV Q2HP PRN PRN Reason: Hypertension Melatonin (Melatonin 3 Mg Tablet) 3 mg PO QHS [facility] Last Admin: 03/21/22 21:13 Dose: Not Given Methocarbamol (Methocarbamol 500 Mg Tablet) 500 mg PO QIDP PRN PRN Reason: Muscle Spasm Last Admin: 03/22/22 03:05 Dose: 500 mg Ondansetron HCl (Ondansetron 4 Mg/2 Ml Vial) 4 mg IV Q4HP PRN PRN Reason: Nausea And Vomiting Polyethylene Glycol (Polyethylene Glycol 3350 17 Gm Packet) 17 gm PO DAILYP PRN PRN Reason: Constipation Potassium Chloride (Potassium Chloride 20 Meq Tablet) 40 meq PO UD PRN PRN Reason: Potssium is 3-3.5 Potassium Chloride (Potassium Chloride 20 Meq Tablet) 40 meq PO UD PRN PRN Reason: Potassium < 3 Senna (Sennosides 1 Tablet) 2 tab PO DAILYP PRN PRN Reason: Constipation Last Admin: 03/21/22 21:19 Dose: 2 tab Sodium Chloride (0.9 % Sodium Chloride 10 Ml Syringe) 10 ml IV Q8 [place] Last Admin: 03/22/22 05:48 Dose: Not Given A/P Narrative A/P Narrative: A: *Generalized weakness/deconditioning/falling: *Dehydration: *possible UTI: *Hypokalemia: *HTN/HLD: *Anxiety: *Obese: BMI 31 P: -IVF -abx, pending UC -cont ACEI - -PT/OT -CM for placement -ppx: Lovenox DNR Time Spent With Patient Time: Total time spent is greater than 50% in coordination of care (as documented) at patient's floor/unit and/or counseling patient: QUALITY VTE Deep Vein Thrombosis/Pulmonary Embolism Present on Admission: No
[2022-03-22] MEDS ORDERED: ZOLPIDEM 5 MG TABLET PO PRN (08:02)
[2022-03-22] MEDS: DOCUSATE SODIUM 100 MG CAPSULE PO SCH (08:28)
[2022-03-22] MEDS: ALPRAZolam 0.5 MG TABLET PO PRN ×2 (08:29→13:17)
[2022-03-22] MEDS ORDERED: NITROFURANTOIN SR 100 MG CAPSULE PO SCH (09:00)
[2022-03-22] MEDS ORDERED: POLYETHYLENE GLYCOL 3350 17 GM PACKET PO SCH (09:00)
[2022-03-22] MEDS ORDERED: LISINOPRIL 10 MG TABLET PO SCH (09:00)
[2022-03-22] MEDS ORDERED: ENOXAPARIN 40 MG/0.4 ML SYRINGE SQ SCH (09:00)
--- NOTE | 2022-03-22 10:33 | Discharge Summary ---
Discharge Provider Provider IMPORTANT FOLLOW-UP INFORMATION FOR PCP: Patient is to monitor blood pressure twice daily and bring log to PCP appointment. Patient information: Note initiated : 03/22/22 at 10:32 am Service Date, if different from initiated Date: [] Patient: Laura Noriega a 82 y/o F admitted on 03/21/22 for weakness. Chief Complaint: [] Date of admission: 03/21/22 20:02 Discharge date: 03/22/22 Primary care physician: MELVIN Evans Consults: 03/21/22 Consult to Physician [CONS] Stat Comment: Consulting Provider: Elpidio Montes Reason For Exam: Physician to Consult COURSE Hospital Course Hospital course: History of present illness: Ms. Noriega is a 82 year old F Patient brought into the ED today for increased weakness and falling. 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 Patient has been unable to care for herself at home. She does live with her son. Given the increased weakness of falling her son total unable to care for her as well. She does complain a little bit of dysuria when asked specifically. UA with ketones and trace leukocyte esterase with increased WBCs. Head CT no acute but does show cerebral atrophy and chronic ischemic changes. Chronic cerebellar infarction noted unchanged. Chest x-ray unremarkable. Patient denies fever chills. Does admit to mid back pain. CPK mildly elevated 600. Renal function within normal limits. 03/22 No overnight event or new complaints. Mildly low potassium today. Replete. Need physical therapy to evaluate today. A: *Generalized weakness/deconditioning/falling: *Dehydration: *possible UTI: *Hypokalemia: *HTN/HLD: *Anxiety: *Obese: BMI 31 Discharge diagnosis: Generalized weakness deconditioning falling dehydration possible UTI Secondary discharge diagnosis: Hypokalemia hypertension anxiety obesity Time Spent with Patient Time attestation: Total time spent providing and/or coordinating discharge services: Time spent: Greater than 30 minutes EXAM Constitutional Vitals: Temp Pulse Resp BP Pulse Ox O2 Del Method 99.3 F H 66 20 155/96 95 03/22/22 08:00 03/22/22 08:00 03/22/22 08:00 03/22/22 08:00 03/22/22 08:00 03/22/22 08:00 Discharge Data Data Completed and Pending Labs on day of discharge: Labs from last 24 hours 03/22/22 03/22/22 03/22/22 05:37 05:37 05:37 WBC 9.5 RBC 4.28 Hgb 12.9 Hct 39.6 POC Hct MCV 92.5 MCH 30.1 MCHC 32.6 RDW 12.6 Plt Count 212 MPV 9.1 Immature Gran % (Auto) 0.3 Neut % (Auto) 69.4 Lymph % (Auto) 19.6 [place] % (Auto) 7.5 Eos % (Auto) 2.8 Baso % (Auto) 0.4 Lymph # (Auto) 1.87 [place] # (Auto) 0.71 Eos # (Auto) 0.27 Baso # (Auto) 0.04 Immature Gran # 0.03 Absolute Neutrophils 6.60 POC Sodium Sodium 137 POC Potassium Potassium 3.2 L POC Chloride Chloride 102 Carbon Dioxide 25 POC Total CO2 Anion Gap 10.0 POC BUN BUN 12 Creatinine 0.6 POC Creatinine GFR Calculation 85 Glucose 118 H POC Glucose Uric Acid 3.8 Calcium 8.5 L POC WB Ioniz Calcium Phosphorus 2.5 Magnesium 1.8 Total Bilirubin 0.4 Direct Bilirubin < 0.2 GGT 18 AST 33 H ALT 13 Alkaline Phosphatase 70 Lactate Dehydrogenase 305 H Total Creatine Kinase Total Protein 6.0 Albumin 3.0 L Globulin 3.0 Albumin/Globulin Ratio 1.0 Triglycerides 99 Procalcitonin 0.06 TSH Urine Color Urine Appearance Urine pH Ur Specific [place] Urine Protein Urine Glucose (UA) Urine Ketones Urine Occult Blood Urine Nitrate Urine Bilirubin Urine Urobilinogen Ur Leukocyte Esterase Urine RBC Urine WBC Ur Squamous Epith Cells Urine Bacteria Urine Mucus Ur Culture Indicated? POC Troponin I 03/21/22 03/21/22 03/21/22 16:38 16:06 16:05 WBC 11.1 H RBC 4.82 Hgb 14.7 Hct 44.2 POC Hct MCV 91.7 MCH 30.5 MCHC 33.3 RDW 12.7 Plt Count 211 MPV 9.2 Immature Gran % (Auto) 0.5 Neut % (Auto) 83.4 H Lymph % (Auto) 9.0 L [place] % (Auto) 5.2 Eos % (Auto) 1.6 Baso % (Auto) 0.3 Lymph # (Auto) 1.00 L [place] # (Auto) 0.58 Eos # (Auto) 0.18 Baso # (Auto) 0.03 Immature Gran # 0.06 H Absolute Neutrophils 9.22 H POC Sodium Sodium POC Potassium Potassium POC Chloride Chloride Carbon Dioxide POC Total CO2 Anion Gap POC BUN BUN Creatinine POC Creatinine GFR Calculation Glucose POC Glucose Uric Acid Calcium POC WB Ioniz Calcium Phosphorus Magnesium 1.8 Total Bilirubin 0.7 Direct Bilirubin < 0.2 GGT AST 30 ALT 11 Alkaline Phosphatase 81 Lactate Dehydrogenase Total Creatine Kinase 600 H Total Protein 7.0 Albumin 3.7 Globulin 3.3 Albumin/Globulin Ratio Triglycerides Procalcitonin TSH 1.64 Urine Color Dark yellow Urine Appearance Clear Urine pH 5.5 Ur Specific [place] >= 1.030 Urine Protein >=300 mg/dl A Urine Glucose (UA) Negative Urine Ketones 40 mg/dl A Urine Occult Blood Small A Urine Nitrate Negative Urine Bilirubin Negative Urine Urobilinogen Normal Ur Leukocyte Esterase Trace A Urine RBC 61 H Urine WBC 98 H Ur Squamous Epith Cells 3 Urine Bacteria Few A Urine Mucus Mod A Ur Culture Indicated? yes POC Troponin I Pending 03/21/22 03/21/22 03/21/22 16:03 16:03 16:02 WBC RBC Hgb Hct POC Hct 44.0 MCV MCH MCHC RDW Plt Count MPV Immature Gran % (Auto) Neut % (Auto) Lymph % (Auto) [place] % (Auto) Eos % (Auto) Baso % (Auto) Lymph # (Auto) [place] # (Auto) Eos # (Auto) Baso # (Auto) Immature Gran # Absolute Neutrophils POC Sodium 141 Sodium POC Potassium 3.5 Potassium POC Chloride 102 Chloride Carbon Dioxide POC Total CO2 29.0 Anion Gap POC BUN 13 BUN Creatinine POC Creatinine 0.8 GFR Calculation Glucose POC Glucose 130 H Uric Acid Calcium POC WB Ioniz Calcium 1.13 L Phosphorus Magnesium Total Bilirubin Direct Bilirubin GGT AST ALT Alkaline Phosphatase Lactate Dehydrogenase Total Creatine Kinase Total Protein Albumin Globulin Albumin/Globulin Ratio Triglycerides Procalcitonin 0.07 TSH Urine Color Urine Appearance Urine pH Ur Specific [place] Urine Protein Urine Glucose (UA) Urine Ketones Urine Occult Blood Urine Nitrate Urine Bilirubin Urine Urobilinogen Ur Leukocyte Esterase Urine RBC Urine WBC Ur Squamous Epith Cells Urine Bacteria Urine Mucus Ur Culture Indicated? POC Troponin I 0 L Discharge Plan Patient/Caregiver Discharge Instructions Activity: ambulate only with your walker Diet: Regular Diet Activity Restrictions/Additional Instructions: Use walker when ambulating. Monitor blood pressure twice daily and bring log to PCP. Prescriptions: New nitrofurantoin monohyd/m-cryst [Macrobid] 100 mg capsule 100 mg PO BID Qty: 9 0RF Rx Instructions: must administer with a meal/food Continued methocarbamol 750 mg tablet 750 mg PO Q8H PRN (Reason: spasms) Qty: 60 1RF zolpidem 6.25 mg tablet,ext release multiphase 6.25 mg PO QHS PRN (Reason: insomnia) Qty: 30 0RF alprazolam 1 mg tablet 1 mg PO QID PRN (Reason: anxiety) Qty: 60 0RF polyethylene glycol 3350 [Miralax] 17 gram/dose powder 17 g PO QDAY Qty: 510 0RF lisinopril 10 mg tablet 10 mg PO BID simvastatin 40 mg tablet 40 mg PO QHS Changed hydrocodone-acetaminophen 10-325 mg tablet 0.5 tab PO BID PRN (Reason: pain) Qty: 1 0RF Other Ambulatory Orders: Walker (ONCE) Location: None Selected Ordered By: Elpidio Montes Follow Up Plan Follow up with: Fredi Siu ARNP [Primary Care Provider] - Patient Disposition: Home Health Service Prognosis: Fair Rehab Potential: Fair Overall status at discharge: patient is progressing back to baseline Discharge Orders: Discharge Order (Routine); Ordered 03/22/22 Ordered By: Elpidio Montes QUALITY VTE Deep Vein Thrombosis/Pulmonary Embolism Present on Admission: No
[2022-03-22] MEDS ORDERED: cloNIDine HCL 0.1 MG TABLET PO SCH (13:35)
[2022-03-22] MEDS ORDERED: SIMVASTATIN 40 MG TABLET PO SCH (21:00)
--- NOTE | 2022-03-28 14:22 | EKG ---
[facility] Test Date: 2022-03-21 Pat Name: Laura Noriega Department: ED Room: Gender: Female Account Associate: AW : 1940 Requested By: Joseph Malhotra Order Number: [id number] Reading MD: Gurdeep Garcia M.D. Measurements Intervals [place] Rate: 76 P: -38 CA: 171 QRS: -19 QRSD: 113 T: 94 QT: 335 QTc: 377 Interpretive Statements Sinus rhythm LVH WITH SECONDARY REPOLARIZATION CHANGES Electronically Signed On 03-28-2022 14:22:02 PDT by Gurdeep Garcia M.D. /[id number]
== END 2022-03-22 17:25 | disposition home health service (06) ==
LOC: ED 15:00 → MEDSUR 15:00
PROVIDERS: ADMIT Internal Medicine; ATTEND Internal Medicine